=== PATIENT | female | born 1970 | race Caucasian/White ===

== ENCOUNTER → 2016-08-02 | Outpatient (CLI) | payer BC ==
[2016-08-02 16:15] LABS: BASOPHILS % (AUTO) 0 % (0-2); EOSINOPHILS # (AUTO) 0.3 10^3uL; EOSINOPHILS % (AUTO) 2 % (0-4); LYMPHOCYTES # (AUTO) 3.6 X10^3; MEAN CORPUSCULAR HEMOGLOBIN 30.2 PG (26.0-34.0); MEAN CORPUSCULAR HGB CONC 34.2 g/dL (31.0-37.0); MEAN CORPUSCULAR VOLUME 88 FL (80-100); MEAN PLATELET VOLUME 10.6 FL (6.0-9.5); MONOCYTES # (AUTO) 0.9 X10^3; MONOCYTES % (AUTO) 8 % (3-11); NEUTROPHILS # (AUTO) 7.6 X10^3; NEUTROPHILS % (AUTO) 61 % (51-67); PLATELET COUNT 266 10^3uL (150-450); WHITE BLOOD COUNT 12.46 10^3uL (4.0-11.0)
[2016-08-02 16:25] LABS: ALBUMIN 3.8 g/dL (3.4-5.0); CALCULATED IONIZED CALCIUM 3.9 mg/dL (3.8-4.6); TOTAL PROTEIN 7.2 g/dL (6.4-8.5)
[2016-08-02 17:31] LABS: ERYTHROCYTE SEDIMENTATION RT* 22 mm/hr (0-21)
== END ==
LOC: LAB 15:10
PROVIDERS: ATTEND Internal Medicine Rheumatology
DX: L40.59 Other psoriatic arthropathy (principal); Z79.899 Other long term (current) drug therapy
CPT/HCPCS: 36415; 80053; 85025; 85652; 86140

== ENCOUNTER → 2016-09-02 | Outpatient (REF) | payer BC ==
[~2016-09-02] MED LIST: BUPR150T9 PO; CYCL10TA45 PO; CYMBALTA; DULO60CA7 PO; FLEXERIL; GUAI5LIQ PO; IMITREX; LEVO75TA6 PO; MELA10TA2 PO; METHOTREXATE; MIRT30TA6 PO; NITR100C3 PO; PROTONIX; RESTORIL; TOPRAMAX; TRM50T PO; ZOLP10TA PO
[2016-09-02 12:43] LABS: BASOPHILS % (AUTO) 0 % (0-2); EOSINOPHILS # (AUTO) 0.2 10^3uL; EOSINOPHILS % (AUTO) 2 % (0-4); MEAN CORPUSCULAR HEMOGLOBIN 30.6 PG (26.0-34.0); MEAN CORPUSCULAR VOLUME 87 FL (80-100); MEAN PLATELET VOLUME 10.7 FL (6.0-9.5); MONOCYTES # (AUTO) 0.6 X10^3; MONOCYTES % (AUTO) 6 % (3-11); NEUTROPHILS % (AUTO) 61 % (51-67); PLATELET COUNT 304 10^3uL (150-450); WHITE BLOOD COUNT 9.77 10^3uL (4.0-11.0)
== END ==
LOC: LAB 11:38
PROVIDERS: ATTEND Nurse Practitioner Family
DX: K92.0 Hematemesis (principal); R73.9 Hyperglycemia, unspecified; Z13.6 Encounter for screening for cardiovascular disorders
CPT/HCPCS: 80061; 83036; 85025

== ENCOUNTER → 2016-09-02 | Outpatient (CLI) | payer BC ==
--- NOTE | 2016-09-02 12:40 | Diagnostic Imaging Report ---
INDICATION: Neck pain. FINDINGS: Five views show good alignment of vertebral bodies. Oblique view show no evidence of foraminal encroachment. Body heights and disc spaces are well maintained. Facets are in good alignment. Atlantoaxial joint appears in good alignment. The prevertebral soft tissues are not widened. IMPRESSION: Normal cervical spine series. Dictated by: Dictated on workstation # [id number]
== END ==
LOC: RAD 11:44
PROVIDERS: ATTEND Nurse Practitioner Family
DX: M54.2 Cervicalgia (principal)
CPT/HCPCS: 72050

== ENCOUNTER 2016-09-23 10:00 | Outpatient (RCR) | payer BC ==
--- NOTE | 2016-09-10 13:31 | PT/OT/ST INITIAL EVALUATION ---
Department of Health and Human Services Form Approved [facility] Care Financing Administration OMB No. [id number] PLAN OF CARE/ASSESSMENT FOR OUTPATIENT REHABILITATION (Complete for Initial Claims Only) 1. PATIENT'S NAME Annabel Olvera 2. ACC # [id number] 3. [id number] 4. PROVIDER NO. [id number] 5. TYPE: PT 6. PRIOR HOSPITALIZATION None 7. PRIMARY DX Musculoskeletal neck pain 8. SECONDARY DX Cervicalgia 9. ONSET DATE Several months ago 10. REFERRAL DATE 09/02/2016 11. SOC. DATE 09/10/2016 12. TIME OF EVAL 10:00 a.m. 12. REFERRING PHYSICIAN Lilli Sims APRN 13. CHARGES/UNITS Evaluation Manual therapy [employer] Electric stim 14. G CODES Na 15. PRIOR LEVEL OF FUNCTION; PERTINENT HISTORY (Prior therapy results, reason for referral.) S: Reason for referral: The patient was referred to physical therapy by Lilli Sims with the diagnosis of musculoskeletal neck pain. Chief Complaint: The patient reports that she has been experiencing neck and shoulder pain for several months. She notes that it is gradually increased in intensity and pain over time. She describes the pain as being constant. She notes it is normally worse later in the day. The patient has radicular symptoms into both her shoulders. Relieving factors: The patient does get some relief with heat. Diagnostic testing: She has had x-rays which were negative. Past medical history: Includes arthritis, ulcers, depression, head injury, thyroid problems. Current medications: Includes Flexeril. Personal health rating: She rates overall health as good. Activity level: Low. Patient's Goal: The patient's goal for therapy is to get some control of her pain. 16. INITIAL ASSESSMENT/SAFETY PRECAUTIONS/MEDICAL COMPLICATIONS (Level of function at start of care. Be specific, use objective measures, list problems.) O: APPEARANCE, OBSERVATION AND GAIT: The patient is a 45-year-old female. She demonstrates forward head posture and rounded shoulders. Mild dowager's hump at cervicothoracic junction. PALPATION: The patient has tenderness to palpation at her suboccipital cervical paraspinal region. Tenderness also noted at upper traps into her levator and scapular area, as well as posterior deltoid regions. RANGE OF MOTION/FLEXIBILITY: Cervical range of motion flexion with some pulling at her neck. Extension only to 50%. Right rotation normal limits, left rotation 80% with limitation. Spontaneous rupture of membranes was normal limits in all directions. STRENGTH: Shoulder strength grossly 4+/5 manual muscle test. The patient demonstrates forward head posture with loss of cervical curve. The patient did have increased tenderness with gentle mobilization and stretching to upper cervical spine. TODAY'S TREATMENT: Included initial evaluation followed by gentle manual stretching Suboccipital release, upper trap and levator stretches and manual traction. The patient was then instructed on a home exercise program for gentle flexibility and postural exercises. Treatment was ended with pre-mod electric stim with moist heat to her upper trap region. 17. INITIAL POC: (Specify procedures, modalities, short and termite technician goals) A: The patient demonstrates forward head posture and rounded shoulders causing increased muscle tension and tightness at her neck and upper thoracic and shoulder region. PROGNOSIS: The patient is a good candidate for physical therapy to work on general posture, flexibility, and strength. SHORT TERM GOALS: 1. The patient to be compliant with home exercise program in 2 weeks. 2. The patient to demonstrate more appropriate upright posture without verbal cueing in 4 weeks. 3. The patient to demonstrate full cervical motion without pain in 6 weeks. 4. The patient to rate pain 1 to 2/10 with normal daily activities in 6 weeks. P: The patient will be seen 2 times a week over the next 6 weeks. Plan on progressing the patient with range of motion, flexibility, and postural activities. Modalities and manual therapy will be used as necessary to decrease pain and inflammation 18. FREQUENCY 2 times per week 19. DURATION 6 weeks 20. FUNCTIONAL LEVEL (End of claim period) 21. PHYSICIAN SIGNATURE ? ON FILE OR ENTER HERE: 22. DATE: I certify the need for these services furnished under this plan of care and if for partial hospitalization. 23. CERTIFICATION FROM THROUGH FORM [id number]
== END 2016-10-11 12:05 | disposition home or self-care (01) ==
LOC: PT 10:00
PROVIDERS: ATTEND Nurse Practitioner Family
DX: M54.2 Cervicalgia (principal)
CPT/HCPCS: 97110; 97140; 97161; G0283; 97014